=== PATIENT | female | born 1960 | race Caucasian/White ===

== ENCOUNTER 2018-03-11 09:00 | Outpatient (RCR) | payer OTHER, SELFPAY ==
--- NOTE | 2018-02-12 09:42 | HP.PTEVAL_ITS ---
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 Date of Evaluation: 02/12/18 Physical Therapist: Charanjit Snyder PT, - Visit Plan Frequency: 2x /Week Duration: 4 Weeks Plan: FLEXABLITY,ROM/STRENGTHENING ANKLE,MODALITIES PTOGRESS SLOW WITH EX'S AND MONITOR RESPONSE - Subjective Subjective: This 57 y/o female presents to physical therapy with bilateral left greater than right exertional compartment syndrome. Patient developed anterior tibial pain since Sep 2017 possible dancing ,eliptical . Intilally ,patinet had edema noticed pain /edema ,seen celso COLES pain continued. Seen DR Kendrick had MRI showed compartment extertional syndrome . Symmptoms worse with walking ,biking any type exercises,walking ,standing. Denies parathesia/tingling.Pain affects ADL'S and housework quality of life. Symptoms better in morning and better as day goes on.Decsriped pain as pinching pain. VOCATION: social media marketing analyst. SOCIAL: - Pain Bilateral Lower Extremity Pain Intensity (Out of 10): 4 Pain Intensity Range: 10 - Objective POSTURE: normal arch. GAIT: normal janine. PALPATION : tender anteior tib , [place] left greater than right. NEURO: inact. HOMMANS:NEGATIVE. AROM: dorsiflexion 5 degrees ,plantarflexion 60 degrees ,eversion 5 degrees,inversion 30 degrees. MMT: ankle posterior tibialis,perneous,anterior tib 4/5 ,G-G 4-/5 - Goals Goal 1:: Independant with HEP Goal Time Frame: 4-6 Weeks Goal 2:: Decrease pain bilateral lower legs by 50 % or greater with increase activity Goal Time Frame: 4-6 Weeks Goal 3:: Patient increase strength of ankle 5/5 to improve function with activity Goal Time Frame: 4-6 Weeks Goal 4:: Patient be able to perform ADLS' and activities with min limitaions. Goal Time Frame: 4-6 Weeks Goal 5:: Patient be able to walk and stand without symptoms Goal Time Frame: 4-6 Weeks - Rehabilitation Potential Physical Therapy Diagnosis: This patint has bilateral exerctional compartment syndrome with weakness lower leg worse with activity benifit from skilled PT Rehabilitation Potential: Good - Anticipated Interventions Patient/Client Instruction: Educate patient on: Condition, Plan of Care For the Purpose of:: To decrease pain, To increase ROM, To improve nutrient delivery to tissue, To increase oxygenation perfusion, To improve muscle performance and motor function, To improve ability to perform ADL's, To increase tolerance to activity/condition/position, To improve performance and independence with ADL's, To improve ability of physical actions for home/ community/work/leisure, To improve gait and locomotor functions, To improve health of tissue, To decrease soft tissue restriction, To increase flexibility/ ROM, To improve endurance, To reduce risk of recurrence, To prevent re-injury, To improve ability to perform tasks related to life management Therapeutic Exercise to Include: Strength training, Flexibilty training, Passive ROM, Active ROM Comment: ANKLE For the Purpose of:: To decrease pain, To decrease swelling/inflammation, To increase ROM, To improve nutrient delivery to tissue, To increase oxygenation perfusion, To improve muscle performance and motor function, To improve ability to perform ADL's, To increase tolerance to activity/condition/position, To improve ability of physical actions for home/community/work/leisure, To improve gait and locomotor functions, To improve health of tissue, To decrease soft tissue restriction, To increase flexibility/ROM, To reduce risk of recurrence, To improve ability to perform tasks related to life management TENS: Yes IF ES: Yes Cryotherapy (ice pack, ice massage): Yes Thermo therapy (hot pack): Yes Ultrasound (thermal/non thermal): Yes For the Purpose of:: To decrease pain, To decrease swelling/inflammation, To increase ROM, To improve nutrient delivery to tissue, To increase oxygenation perfusion, To improve health of tissue, To decrease soft tissue restriction Thank you for the opportunity to evaluate your patient. For Medicare and Medicare HMO plans, please review the plan of care and approve it. It will need to be FAXED BACK to us at [phone] for Medicare purposes. Please let me know if there are questions or concerns regarding this plan of care. Physician Signature: Date:
--- NOTE | 2018-02-12 16:33 | HP.PTEVAL_ITS ---
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 Date of Evaluation: 02/12/18 Physical Therapist: Charanjit Snyder PT, - Visit Plan Frequency: 2x /Week Duration: 4 Weeks Plan: FLEXABLITY,ROM/STRENGTHENING ANKLE,MODALITIES PTOGRESS SLOW WITH EX'S AND MONITOR RESPONSE - Subjective Subjective: This 57 y/o female presents to physical therapy with bilateral left greater than right exertional compartment syndrome. Patient developed anterior tibial pain since Sep 2017 possible dancing ,eliptical . Intilally ,patinet had edema noticed pain /edema ,seen celso COLES pain continued. Seen DR Kendrick had MRI showed compartment exertional syndrome . Symmptoms worse with walking ,biking any type exercises,walking ,standing. Denies parathesia/tingling.Pain affects ADL'S and housework quality of life. Symptoms better in morning and better as day goes on.Decsriped pain as pinching pain. VOCATION: social media editor. SOCIAL: - Pain Bilateral Lower Extremity Pain Intensity (Out of 10): 4 Pain Intensity Range: 10 - Objective POSTURE: normal arch. GAIT: normal janine. PALPATION : tender anteior tibials ,[place] left greater than right. NEURO: inact. HOMMANS:NEGATIVE. AROM: dorsiflexion 5 degrees ,plantarflexion 60 degrees ,eversion 5 degrees, inversion 30 degrees. MMT: ankle posterior tibialis,perneous,anterior tib 4/5 , G-G 4-/5 - Goals Goal 1:: Independant with HEP Goal Time Frame: 4-6 Weeks Goal 2:: Decrease pain bilateral lower legs by 50 % or greater with increase activity Goal Time Frame: 4-6 Weeks Goal 3:: Patient increase strength of ankle 5/5 to improve function with activity Goal Time Frame: 4-6 Weeks Goal 4:: Patient be able to perform ADLS' and activities with min limitaions. Goal Time Frame: 4-6 Weeks Goal 5:: Patient be able to walk and stand without symptoms Goal Time Frame: 4-6 Weeks - Rehabilitation Potential Physical Therapy Diagnosis: This patient has bilateral exerctional compartment syndrome with weakness lower leg worse with activity benifit from skilled PT Rehabilitation Potential: Good - Anticipated Interventions Patient/Client Instruction: Educate patient on: Condition, Plan of Care For the Purpose of:: To decrease pain, To increase ROM, To improve nutrient delivery to tissue, To increase oxygenation perfusion, To improve muscle performance and motor function, To improve ability to perform ADL's, To increase tolerance to activity/condition/position, To improve performance and independence with ADL's, To improve ability of physical actions for home/ community/work/leisure, To improve gait and locomotor functions, To improve health of tissue, To decrease soft tissue restriction, To increase flexibility/ ROM, To improve endurance, To reduce risk of recurrence, To prevent re-injury, To improve ability to perform tasks related to life management Therapeutic Exercise to Include: Strength training, Flexibilty training, Passive ROM, Active ROM Comment: ANKLE For the Purpose of:: To decrease pain, To decrease swelling/inflammation, To increase ROM, To improve nutrient delivery to tissue, To increase oxygenation perfusion, To improve muscle performance and motor function, To improve ability to perform ADL's, To increase tolerance to activity/condition/position, To improve ability of physical actions for home/community/work/leisure, To improve gait and locomotor functions, To improve health of tissue, To decrease soft tissue restriction, To increase flexibility/ROM, To reduce risk of recurrence, To improve ability to perform tasks related to life management TENS: Yes IF ES: Yes Cryotherapy (ice pack, ice massage): Yes Thermo therapy (hot pack): Yes Ultrasound (thermal/non thermal): Yes For the Purpose of:: To decrease pain, To decrease swelling/inflammation, To increase ROM, To improve nutrient delivery to tissue, To increase oxygenation perfusion, To improve health of tissue, To decrease soft tissue restriction Thank you for the opportunity to evaluate your patient. For Medicare and Medicare HMO plans, please review the plan of care and approve it. It will need to be FAXED BACK to us at [phone] for Medicare purposes. Please let me know if there are questions or concerns regarding this plan of care. Physician Signature: Date:
--- NOTE | 2018-03-11 09:44 | HP.PTDCSUM_ITS ---
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 Discharge Date: 03/11/18 Please see the following information for a summary of their discharge status. - Subjective Subjective: PATIENT REPORTS ALOT BETTER. WITH WALKING AND EXERCISE SOME EDEMA IN ANTERIOR. TIBIA - Pain Bilateral Lower Extremity Pain Intensity (Out of 10): 1 - Overall Improvement % Improvement: 75 - Objective Objective/Function: GAIT: normal janine. NEURO: denies paratrhesia/tingling. MMT: ankle 4/5 DF/PF/EV/IN. PALAPTION: medial anterior tibia tender. AROM: DF 5 dergrees ,PF 70 degrees ,EV 5 degrees,IN 40 DEGREES - Goals Goal 1:: Independant with HEP Goal Progress: Goal Met Goal 2:: Decrease pain bilateral lower legs by 50 % or greater with increase activity Goal Progress: Goal Met Goal 3:: Patient increase strength of ankle 5/5 to improve function with activity Goal Progress: Goal Met Goal 4:: Patient be able to perform ADLS' and activities with min limitaions. Goal Progress: Goal Met Goal 5:: Patient be able to walk and stand without symptoms Goal Progress: Goal Met - Plan Plan: D/C TO HEP MONITIOR EX'S - D/C Information Discharge Comments: HEP ,MONITOR RESPONSE WITH EX'S If there are questions or concerns regarding this patient's physical therapy, please feel free to call me at [phone]. Thank you for the referral of this patient. Sincerely, Charanjit Snyder, PT,
== END 2018-03-11 19:00 | disposition home or self-care (01) ==
LOC: PT 09:00
PROVIDERS: Family Provider Family Medicine; PCP Family Medicine; Visit Provider Orthopaedic Surgery
DX: T79.A0XD Compartment syndrome, unspecified, subsequent encounter (principal)
CPT/HCPCS: 97014; 97032; 97110; 97161; G0283